=== PATIENT | male | born 1985 | race Caucasian/White ===

== ENCOUNTER 2024-12-26 03:00 | Emergency (ER) | payer OTHER ==
[~2024-12-26] VITALS: Ht 177.8 cm; Wt 79.4 kg
[2024-12-26 03:09] VITALS: BP 139/70; TEMP 98.2
[2024-12-26 04:11] VITALS: O2SAT 99
== END 2024-12-26 04:11 | disposition home or self-care (01) ==
LOC: ER 03:03
DX: S02.2XXA Fracture of nasal bones, initial encounter for closed fracture (principal); F17.200 Nicotine dependence, unspecified, uncomplicated; Z60.2 Problems related to living alone; W01.0XXA Fall on same level from slipping, tripping and stumbling without subsequent striking against object, initial encounter; Y93.89 Activity, other specified; Y92.89 Other specified places as the place of occurrence of the external cause; Y99.8 Other external cause status
CPT/HCPCS: 70450-TC; 70486-TC; 72125-TC